=== PATIENT | male | born 1940 | race Caucasian/White ===

== ENCOUNTER 2019-06-15 15:19 | Outpatient (CLI) | payer MEDICARE, SELFPAY ==
--- NOTE | ~2019-06-15 | XR_ITS ---
EXAMINATION: XR elbow LT min 3V DATE: 06/15/2019 15:41 INDICATION: Olecranon bursitis with left elbow swelling TECHNIQUE: Anteroposterior, two oblique and lateral views of the left elbow were obtained. COMPARISON: None. FINDINGS: Alignment is normal. No fracture or joint effusion. 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 Small ossicle along the lateral epicond yle could represent a degenerative loose body or more likely heterotopic ossification related to old injury. Prominent relatively dense soft tissue swelling overlying the olecranon consistent with given history of olecranon bursitis. No evident internal calcified matrix or underlying erosion or periost eal reaction. IMPRESSION: 1. Prominent soft tissue swelling posterior to the elbow consistent with given history of olecranon b ursitis. 2. 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 Reviewed, dictated and finalized at location A. HOUSE CHECKER IMPRESSION: 1. Prominent soft tissue swelling posterior to the elbow consistent with given history of olecranon bursitis. 2. 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
== END 2019-06-15 15:20 | disposition home or self-care (01) ==
LOC: CHSIMG 15:22
PROVIDERS: PCP Family Medicine; Visit Provider Family Medicine
DX: M70.22 Olecranon bursitis, left elbow (principal)
CPT/HCPCS: 73080

== ENCOUNTER 2019-11-05 09:14 | Outpatient (CLI) | payer MEDICARE, SELFPAY ==
--- NOTE | ~2019-11-05 | CT_ITS ---
EXAMINATION: CT abdomen pelvis wo/w con EXAM DATE: 11/05/2019 10:00 INDICATION: Kidney cancer follow-up. TECHNIQUE: Spiral CT of the abdomen without contrast followed by both abdomen and pelvis with 100 cc intravenous Omnipaque 350. Axial, coronal and sagittal images were reviewed. The dose-length produc t (DLP) for this examination was 609.12 mGy-cm. The exposure was tailored according to patient size (auto mA exposure control), and iterative reconstruction (ASIR) was used as additional dose reduction technique. Comparison is made to prior examination from 10/02/2018. FINDINGS: The liver, spleen, adrenal glands and pancreas are unremarkable. Gallbladder is unremarkab le. No biliary obstruction. Surgical changes at the lower pole of the left kidney, partial nephrect victor m with stable appearance compared to prior study. There is severe prostatomegaly. The bladder is u nremarkable. There is no retroperitoneal or pelvic lymphadenopathy. There is mild to moderate scat tered arteriosclerotic disease. Small bilateral inguinal fat-containing hernias. The appendix is normal. The stomach and small bowel are unremarkable. There is moderate colonic dive rticulosis. There is no adjacent inflammatory change to suggest diverticulitis. There is expected am ount of colonic stool. No free intraperitoneal gas. The heart is normal in size. There are no pe ricardial or pleural effusions. The lung bases are unremarkable. There are no osteoblastic or osteo lytic lesions identified. IMPRESSION: 1. Stable left renal surgical changes. No evidence of metastatic disease. 2. Severe prostatomegaly. 3. Small inguinal hernias. 4. Colonic diverticulosis. Reviewed, dictated and finalized at location B.
[2019-11-05 09:52] LABS: Estimated Glomerular Filt Rate > 60
== END 2019-11-05 09:15 | disposition home or self-care (01) ==
PROVIDERS: PCP Family Medicine; Visit Provider Urology
DX: C64.2 Malignant neoplasm of left kidney, except renal pelvis (principal); N40.0 Benign prostatic hyperplasia without lower urinary tract symptoms; K40.90 Unilateral inguinal hernia, without obstruction or gangrene, not specified as recurrent; K57.30 Diverticulosis of large intestine without perforation or abscess without bleeding
CPT/HCPCS: 36415; 74178; Q9967

== ENCOUNTER 2020-06-06 16:13 | Outpatient (CLI) | payer MEDICARE, SELFPAY ==
[2020-06-06 17:06] LABS: SARS-CoV-2 Ag Positive (Negative)
[2020-06-08 14:05] LABS: SARS-CoV-2 RNA PCR Positive
== END 2020-06-06 16:14 | disposition home or self-care (01) ==
LOC: CHSLAB 16:15
PROVIDERS: PCP Family Medicine; Visit Provider Family Medicine
DX: U07.1 COVID-19 (principal)
CPT/HCPCS: 87426; C9803; U0003; U0005

== ENCOUNTER 2020-06-13 10:57 | Outpatient (RCR) | payer MEDICARE, SELFPAY ==
[2020-06-13] MEDS: diphenhydrAMINE HCl CAP 25 MG CAPSULE PO (13:21)
[2020-06-13] MEDS: ACETAMINOPHEN 325 MG TABLET 650 MG PO (13:21)
[2020-06-13] MEDS: FAMOTIDINE 20 MG TABLET PO (13:21)
[2020-06-13 13:25] VITALS: BP 110/76; PULSE 76; RESP 16; TEMP 37.3; O2SAT 97
--- NOTE | 2020-06-14 11:35 | PC.NURSE ---
Patient had no side effects from infusion and patient feeling slightly better.
== END 2020-06-22 15:33 ==
LOC: AMCINF 10:57
PROVIDERS: PCP Family Medicine; Visit Provider Family Medicine
DX: Z23 Encounter for immunization (principal); U07.1 COVID-19
CPT/HCPCS: A9270; J7050; M0239; Q0239

== ENCOUNTER 2020-06-16 13:41 | Observation (INO) | payer MEDICARE, SELFPAY ==
[2020-06-16] VITALS (10 sets, daily range): BP systolic 102–129; BP diastolic 63–90; PULSE 82–110; RESP 20–31; TEMP 36.6–37.8; O2SAT 92–99
--- NOTE | ~2020-06-16 | XR_ITS ---
EXAMINATION: XR chest 1V portable EXAM DATE: 06/16/2020 14:28 INDICATION: dyspnea, SOB, 06/06 COVID+. TECHNIQUE: Portable AP frontal chest x-ray was obtained. Comparison is made to prior examination from 10/02/2018. FINDINGS: Moderate bilateral airspace disease, peripheral regions more affected consistent with COVID pneumonia. No pneumothorax or pleural effusion. Probable small to moderate gastroesophageal hiatal h ernia. The cardiomediastinal silhouette is prominent but magnified on this AP technique. There are no osseous abnormalities identified. IMPRESSION: 1. Moderate bilateral airspace disease consistent with COVID pneumonia. Reviewed, dictated and finalized at location B. RADIATOR MECHANIC
--- NOTE | ~2020-06-16 | CT_ITS ---
EXAMINATION: CTA chest PE protocol EXAM DATE: 06/16/2020 15:25 INDICATION: Dyspnea. COVID pneumonia. TECHNIQUE: Spiral CTA of the chest (pulmonary arteries) was performed with 100 cc Omnipaque 350 intr avenous contrast injection. Images were acquired during the pulmonary arterial phase. Coronal maxi mum intensity projection 3D-reconstructions were created by the technologist on dedicated workstation . Axial, coronal and sagittal reformatted images were reviewed. The dose-length product (DLP) for t his examination was 411.64 mGy-cm. The exposure was tailored according to patient size (auto mA exp osure control), and iterative reconstruction (ASIR) was used as additional dose reduction technique. Correlation is made to chest x-rays earlier same date, 10/02/2018. FINDINGS: Pulmonary arteries are well opacified and without intraluminal filling defects. There is m oderate sliding gastroesophageal hiatal hernia. No thoracic aortic dissection. There is bilateral m oderate amount of peripheral groundglass airspace disease, likely early stage of COVID pneumonia give n that this was not evident on an x-ray from 2019. No regions of confluence at this point in time. Th ere is moderate emphysema. Mild to moderate hyperinflation. There are no pleural or pericardial effus ions. Tracheobronchial tree is patent. Mildly enlarged precarinal lymph node likely reactive. Th ere is no pneumothorax. Heart normal in size. There is mild coronary arterial calcification, sakshi rial sclerosis. Upper abdomen is unremarkable. There is thoracic spondylosis without osteoblastic or osteolytic lesions identified. Mild thyromegaly. IMPRESSION: 1. Moderate amount of bilateral peripheral groundglass opacity consistent with early stage COVID pne umonia. 2. Moderate emphysema. 3. Moderate hiatal hernia. 4. No pulmonary emboli. Reviewed, dictated and finalized at location B. T DIRECTOR IMPRESSION: 1. Moderate amount of bilateral peripheral groundglass opacity consistent with early stage COVID pneumonia. 2. Moderate emphysema. 3. Moderate hiatal hernia. 4. No pulmonary emboli.
--- NOTE | 2020-06-16 13:53 | ED.SOB ---
HPI - SOB/Dyspnea General Chief Complaint: Shortness of Breath/Dyspnea Stated Complaint: cough headache no appetite sob Time Seen by Provider: 06/16/20 13:58 Source: patient Mode of arrival: ambulatory Limitations: no limitations History of Present Illness HPI Narrative: 79-year-old man who was diagnosed with COVID on June 06 comes in today complaining of increasing shortness of breath, poor appetite and cough and headache. Patient states that shortness breath is developed over the last few days. He denies fever, vomiting, diarrhea, chest pain, abdominal pain and dysuria. Is a former smoker but denies history of lung disease. MD elicited complaint: shortness of breath and cough Onset (ago): day(s) (2-3) Context: recent illness Timing: constant Severity: moderate Exacerbating factors: exertion Relieving factors: rest Associated symptoms: cough Treatment prior to arrival: none Related Data Home oxygen amount: none Home Medications Medication Instructions Recorded Confirmed finasteride 5 mg PO DAILY 06/16/20 06/16/20 levothyroxine [Synthroid] 100 mcg PO DAILY 06/16/20 06/16/20 Allergies Allergy/AdvReac Type Severity Reaction Status Date / Time propoxyphene Allergy Unknown Unknown Verified 06/16/20 14:23 Review of Systems Constitutional: Constitutional: Denies chills and Denies fever(s) Eyes: Eyes: Denies change in vision and Denies photophobia ENT: Denies dysphagia, Denies nasal congestion and Denies sore throat Cardiovascular: Cardiovascular: Denies chest pain and Denies radiating jaw, neck or arm pain Respiratory: Respiratory: Reports cough, Reports dyspnea and Denies wheezing Gastrointestinal: Gastrointestinal: Denies abdominal pain, Denies nausea and Denies vomiting Genitourinary: Genitourinary: Denies hematuria and Denies dysuria Musculoskeletal: Musculoskeletal: Denies arthralgias and Denies joint swelling Integumentary/Breasts: Skin/Breast: Denies pruritus, Denies erythema and Denies rash Neurologic: Denies vertigo, Denies dizziness and Denies syncope Hematologic/Lymphatic: Hematologic/Lymphatic: Denies easy bleeding and Denies easy bruising Allergic/Immunologic: Allergic/Immunologic: Denies lip swelling and Denies throat swelling PMFSH Past Medical History Medical History BPH (benign prostatic hyperplasia) Cochlear implant in place Hypothyroid Surgical History Surgical History Kidney mass Social History Social History Smoking status: Former smoker Tobacco type: cigarettes Smoking end date: 05/13/83 Alcohol intake: never Substance use: never Gender identity (if verbalized by the patient): Male Sexual Orientation (if Verbalized by the Patient): Straight or Heterosexual Spiritual care concerns: No Exam Const: General: alert Orientation/consciousness: patient oriented x3 Other: Moderate acute distress HENMT: Head: normal to inspection General nose exam: Normal nares present Face and sinus: normal facial exam Mouth: Yes moist mucous membranes Other: Diffuse erythema of the oropharynx without masses, swelling. Small amount of white exudate on the right. Eyes: Conjunctivae: conjunctivae normal Pupils: Equal, round and reactive pupils present EOM: EOMs intact bilaterally Neck: Neck: normal visual inspection and no lymphadenopathy Resp: Effort & Inspection: labored Auscultation: rales bilateral at the base Cardio: Rate: regular rate Rhythm: regular rhythm Heart sounds: no murmurs GI: GI Palp: Yes Soft to palpation and No Tenderness to palpation present (GI) Skin: General skin exam: normal color, no jaundice and no pallor Rashes: no rashes Neuro: General: patient oriented x3, moves all extremities, No no focal motor deficits and No CN's II-XI intact bilaterally Speech: No normal speec
--- NOTE | 2020-06-16 14:04 | ECG_ITS ---
Measurements Intervals [place] Rate: 87 P: 70 WY: 236 QRS: -29 QRSD: 81 T: 20 QT: 345 QTc: 417 Interpretive Statements SINUS RHYTHM WITH FIRST DEGREE AV BLOCK ATRIAL PREMATURE COMPLEXES DELAYED PRECORDIAL R/S TRANSITION BORDERLINE T WAVE ABNORMALITY- INFERIOR LEADS BASELINE WANDER- V4 ABNORMAL ECG Electronically Signed On 06-16-2020 15:05:21 RADIO ENGINEERING TEACHER by Camden Holliday D.O.
[2020-06-16 14:33] LABS: Basophils Absolute Auto 0.01 K/mm3 (0.00-0.10); Basophils Percent Auto 0.2 % (0.0-1.0); Eosinophils Absolute Auto 0.05 K/mm3 (0.02-0.50); Eosinophils Percent Auto 0.9 % (1.0-6.0); Hematocrit 40.2 % (37.0-46.0); Hemoglobin 13.7 g/dL (12.4-15.3); Immature Granulocyte Absolute 0.03 K/mm3 (0.00-0.00); Immature Granulocyte Percent A 0.5 % (0.0-0.0); Lymphocytes Absolute Auto 0.71 K/mm3 (1.10-4.50); Lymphocytes Percent Auto 12.9 % (18.0-42.0); Mean Corpuscular HGB Conc 34.1 g/dL (32.0-36.0); Mean Platelet Volume 9.7 fl (8.7-11.0); Monocytes Absolute Auto 0.25 K/mm3 (0.10-0.90); Monocytes Percent Auto 4.5 % (2.0-11.0); Neutrophils Absolute Auto 4.5 K/mm3 (1.7-7.2); Platelet Count Result 182 K/mm3 (150-420); Red Blood Count 4.42 M/mm3 (4.70-6.10); Red Cell Distribution Width 12.5 % (11.6-14.4); White Blood Count 5.5 K/mm3 (4.8-10.8)
[2020-06-16 14:33] LABS: Appearance Urine Clear (Clear); Bilirubin Urine Negative (Negative); Color Urine Yellow (Yellow); Glucose Urine UA Negative (Negative); Ketones Urine Negative (Negative); Leukocyte Esterase Ur Trace LEU/UL (Negative); Nitrate Urine Negative (Negative); Protein Urine 2+ (Negative); Specific Grav Ur >= 1.030 (1.010-1.020); pH Urine 6.5 (5.0-8.0)
[2020-06-16 14:45] LABS: Partial Thromboplastin Time 30.2 SEC (23.90-30.70); Prothrombin Time 10.9 Seconds (9.50-12.10)
[2020-06-16 14:48] LABS: D Dimer 2.27 mg/L (0.19-0.50)
[2020-06-16 14:49] LABS: Add Urine Microscopic? YES; Bacteria Urine 3+ /hpf; Blood Urine Trace-Intact (Negative); Squamous Epithelial Cell Urine None seen /hpf (Few); WBC Urine 16-20 /hpf (0-3)
[2020-06-16 14:50] LABS: Mucus Urine Heavy /lpf
[2020-06-16 14:55] LABS: BNP 41 pg/mL (0-100); Influenza Control Valid (Valid)
[2020-06-16 14:57] LABS: Alanine Aminotransferase 48 U/L (16-63); Albumin Level 2.6 g/dL (3.4-5.0); Alkaline Phosphatase 123 U/L (46-116); Anion Gap 11 mmol/L (8-16); Aspartate Amino Transferase 62 U/L (15-37); Bilirubin,Total 0.6 mg/dL (0.00-1.00); Blood Urea Nitrogen 13 mg/dL (7-18); Calcium 8.6 mg/dL (8.5-10.1); Carbon Dioxide 27 mmol/L (21-32); Chloride 102 mmol/L (98-108); Estimated CRCL calculation 55 ml/min; Estimated Glomerular Filt Rate > 60; Glucose 105 mg/dL (70-99); Osmolality Calculated 290 mOsm/kg (285-295); Sodium 140 mmol/L (136-145); Total Protein 7.4 g/dL (6.4-8.2); Troponin I 7.3 ng/L (0.00-60.4)
[2020-06-16 15:10] LABS: Base Excess ABG -1.2 mmol/L (0-2); Carboxyhemoglobin 0.9 % (0-1.5); HCO3 ABG 20.6 mmol/L (23-29); Methemoglobin ABG 0.3 % (0-1.5); Oxygen Content ABG 17.4 %vol (16.0-22.0); Oxygen Saturation ABG 90.8 % (95-97); Oxyhemoglobin 89.7 % (94-100); PCO2 ABG 27.1 mmHg (35-45); PO2 ABG 55.7 mmHg (75-85); Reduced Hemoglobin 9.1 % (0-1.5); Total Hemoglobin 13.8 g/dL
[2020-06-16 15:11] LABS: Device ROOM AIR; Modified Allen's Test Pass; Site Drawn RIGHT RADIAL
[2020-06-16] MEDS: ALBUTEROL SULFATE NEB 2.5 MG/3 ML INH INHALATION (15:53)
[2020-06-16 15:59] LABS: Lactic Acid Reflex 0.7 mmol/L (0.4-2.0)
--- NOTE | 2020-06-16 16:49 | PC.NURSE ---
1510 PT PLACED ON 02 2L SAO2 90
--- NOTE | 2020-06-16 16:50 | ADMGEN ---
This patient, Douglas Cid, was admitted to 2nd Floor Room 210-2. Patient/family oriented to hospital policies and general routines including ID bracelet, bed and alarms, visiting hours, pain management, procedures, bathroom and other care routines, personal items, smoking policy, room service/diet, and visiting hours. Information on how to activate the Rapid Response Team has been discussed. Patient/Family are encouraged to report perceived risks to care and to ask questions if they do not understand what they are told or what they should do. Patient being admitted for COVID Pneumonia, UTI, and Respiratory Distress. Vital signs stable at this time, 02@2l per nc cont. per order. Telemetry applied per order, White board and marker being used to communicate with patient due to patients Cochlear implant battery going . This nurse will call to bring in rocket motor mechanic for battery and Living will paperwork. Able to communicate with patient through white board effectively. Patient resting in bed, hob elevated, call light provided.
--- NOTE | 2020-06-16 18:00 | PC.NURSE ---
Patient provided with sandwich, fruit cup, cottage cheese and orange juice per request. Resting in bed with hob elevated. Call light at side.
--- NOTE | 2020-06-16 19:30 | PC.NURSE ---
Patient complaining of severe pain-headache and sore throat. Doctor notified. new order for PRN morphine received.
[2020-06-16] MEDS: ALBUTEROL SULFATE (*SP) INHALER 2 PUFF INHALATION (19:50)
[2020-06-16] MEDS: MORPHINE SULFATE (*CRX) 4 MG/ML INJ IV PUSH (19:50)
[2020-06-16] MEDS: DOXYCYCLINE HYCLATE 100 MG TABLET PO (20:05)
--- NOTE | 2020-06-16 20:10 | PC.NURSE ---
PRN morphine given. Patient temp 100.1. Doctor notified and order received for PRN tylenol. SPO2 sats at 95% on room air.
[2020-06-16] MEDS: ACETAMINOPHEN 325 MG TABLET 650 MG PO (21:00)
[2020-06-16 21:18] LABS: Glucose Point of Care 99 (65-105)
--- NOTE | 2020-06-16 21:30 | PC.NURSE ---
Patient reports relief with pain medication. temp decreased tp 99.
--- NOTE | 2020-06-16 22:30 | PC.NURSE ---
Patient indicates pain under control. No SOB at this time. SPO2 95% on room air.
--- NOTE | 2020-06-16 23:30 | PC.NURSE ---
Patient resting. Call light in reach. SPO2 at 95% on room air.
[2020-06-17] VITALS (20 sets, daily range): BP systolic 105–130; BP diastolic 55–84; PULSE 67–110; RESP 16–20; TEMP 36–37.1; O2SAT 85–98
--- NOTE | 2020-06-17 00:30 | PC.NURSE ---
Patient resting. VS WNL. telemetry shows sinus rhythm. SPO2 95% on room air.
--- NOTE | 2020-06-17 01:30 | PC.NURSE ---
Patient resting. telemetry shows sinus rhythm. SPO2 95 on room air
--- NOTE | 2020-06-17 02:30 | PC.NURSE ---
Noted when patient lays on his back SPO2 is 94 to 95 on room air. SPO2 drops when he turns to his side.
[2020-06-17] MEDS: MORPHINE SULFATE (*CRX) 4 MG/ML INJ IV PUSH ×2 (03:49→10:07)
--- NOTE | 2020-06-17 03:56 | PC.NURSE ---
Patient SPO2 dropped to 88%. Patient observed to be in deep sleep. Oxygen placed back on patient. Sats up to 95%. Patient requested strong medication for headache PRN morphine given
--- NOTE | 2020-06-17 05:31 | PC.NURSE ---
Noted patient has been getting up to use toilet independently.
[2020-06-17 05:58] LABS: Basophils Absolute Auto 0.01 K/mm3 (0.00-0.10); Basophils Percent Auto 0.2 % (0.0-1.0); Eosinophils Absolute Auto 0.06 K/mm3 (0.02-0.50); Eosinophils Percent Auto 1.1 % (1.0-6.0); Hematocrit 36.5 % (37.0-46.0); Hemoglobin 12.6 g/dL (12.4-15.3); Immature Granulocyte Absolute 0.03 K/mm3 (0.00-0.00); Immature Granulocyte Percent A 0.6 % (0.0-0.0); Lymphocytes Absolute Auto 0.72 K/mm3 (1.10-4.50); Lymphocytes Percent Auto 13.5 % (18.0-42.0); Mean Corpuscular HGB Conc 34.5 g/dL (32.0-36.0); Mean Corpuscular Hemoglobin 31.8 pg (27.0-31.0); Mean Corpuscular Volume 92.2 fL (78.0-102.0); Mean Platelet Volume 9.7 fl (8.7-11.0); Monocytes Absolute Auto 0.31 K/mm3 (0.10-0.90); Monocytes Percent Auto 5.8 % (2.0-11.0); Neutrophils Absolute Auto 4.2 K/mm3 (1.7-7.2); Neutrophils Percent Auto 78.8 % (50.0-70.0); Platelet Count Result 165 K/mm3 (150-420); Red Blood Count 3.96 M/mm3 (4.70-6.10); Red Cell Distribution Width 12.6 % (11.6-14.4); White Blood Count 5.3 K/mm3 (4.8-10.8)
[2020-06-17] MEDS: ALBUTEROL SULFATE (*SP) INHALER 2 PUFF INHALATION ×3 (06:07→13:37)
[2020-06-17 06:16] LABS: Alanine Aminotransferase 57 U/L (16-63); Albumin Level 2.2 g/dL (3.4-5.0); Alkaline Phosphatase 110 U/L (46-116); Anion Gap 10 mmol/L (8-16); Aspartate Amino Transferase 54 U/L (15-37); Bilirubin,Total 0.6 mg/dL (0.00-1.00); Blood Urea Nitrogen 11 mg/dL (7-18); Calcium 8.4 mg/dL (8.5-10.1); Carbon Dioxide 26 mmol/L (21-32); Chloride 104 mmol/L (98-108); Estimated CRCL calculation 68 ml/min; Estimated Glomerular Filt Rate > 60; Glucose 100 mg/dL (70-99); Osmolality Calculated 289 mOsm/kg (285-295); Potassium 4.2 mmol/L (3.5-5.1); Sodium 140 mmol/L (136-145); Total Protein 6.4 g/dL (6.4-8.2)
[2020-06-17 08:05] LABS: Glucose Point of Care 99 (65-105)
--- NOTE | 2020-06-17 08:51 | PM.IMHP ---
H&P: HPI History of Present Illness Date/Time: 06/17/20 08:51 Patient being admitted under observation for rapid positive test for COVID, shortness of breath cough headache and no appetite. <BHAVYA Villalpando - Last Filed: 06/18/20 07:22> Chief Complaint: Weakness, dry cough, SOB <BHAVYA Villalpando - Last Filed: 06/18/20 07:22> Narrative: Douglas Cid is a 79 year old male who is very hard of hearing stating he does not have batteries for his cochlear implants. a little difficult getting a history from this patient as a form of communication is writing down questions for patient to verbally respond to. Patient states that he was having some weakness shortness of breath some headache starting a couple days ago and since since had not improved you subsequently was tested for COVID on June 06 2020 for which she was positive. Patient now continues to show signs of the infection. <BHAVYA Villalpando - Last Filed: 06/18/20 07:22> Review of Systems Constitutional: Constitutional: Reports no additional constitutional complaints, Reports headache(s), Reports poor appetite and Reports weakness <BHAVYA Villalpando - Last Filed: 06/18/20 07:22> Cardiovascular: Cardiovascular: Reports no additional cardiovascular complaints, Denies chest pain, Denies chest pain at rest and Denies chest pain with activity <BHAVYA Villalpando - Last Filed: 06/18/20 07:22> Respiratory: Respiratory: Reports cough (Dry nonproductive), Reports dyspnea and Reports dyspnea on exertion <BHAVYA Villalpando - Last Filed: 06/18/20 07:22> Gastrointestinal: Gastrointestinal: Reports no additional gastrointestinal complaints <BHAVYA Villalpando - Last Filed: 06/18/20 07:22> Musculoskeletal: Musculoskeletal: Reports no additional musculoskeletal complaints <BHAVYA Villalpando - Last Filed: 06/18/20 07:22> [facility] Past Medical History Medical History: Medical History BPH (benign prostatic hyperplasia) Cochlear implant in place Hypothyroid <BHAVYA Villalpando - Last Filed: 06/18/20 07:22> Surgical History Surgical History: Surgical History Kidney mass <BHAVYA Villalpando - Last Filed: 06/18/20 07:22> Social History Social History: Social History Smoking status: Former smoker Tobacco type: cigarettes Smoking end date: 05/13/83 Alcohol intake: never Substance use: never Gender identity (if verbalized by the patient): Male Sexual Orientation (if Verbalized by the Patient): Straight or Heterosexual Spiritual care concerns: No <BHAVYA Villalpando - Last Filed: 06/18/20 07:22> Meds Home Medications and Allergies Home medications: Home Medications Medication Instructions Recorded Confirmed Type finasteride 5 mg PO DAILY 06/16/20 06/16/20 History levothyroxine [Synthroid] 100 mcg PO DAILY 06/16/20 06/16/20 History dexamethasone 6 mg PO DAILY@0800 #9 tablet 06/18/20 Rx dextromethorphan-guaifenesin 10 ml PO Q6H PRN #10 ml 06/18/20 Rx [Robafen DM Cough] sulfamethoxazole-trimethoprim 1 tablet PO Q12H 14 Days #28 tablet 06/18/20 Rx [Bactrim DS] <BHAVYA Villalpando - Last Filed: 06/18/20 07:22> Allergies/Adverse reactions: Allergies Allergy/AdvReac Type Severity Reaction Status Date / Time propoxyphene Allergy Unknown Unknown Verified 06/16/20 14:23 <BHAVYA Villalpando - Last Filed: 06/18/20 07:22> Vital Signs Vital Signs - 24 hr 06/16/20 14:02 06/16/20 14:32 06/16/20 14:54 Temperature 98.2 F Pulse Rate 92 82 88 Respiratory Rate 20 28 H Blood Pressure 128/90 129/88 Pulse Oximetry 93 92 06/16/20 15:54 06/16/20 16:01 06/16/20 16:15 Temperature Pulse Rate 93 93 110 H Respiratory Rate 31 H 25 H 24 H Blood Pressure 127/79 Pulse Oximet
[2020-06-17] MEDS: DOXYCYCLINE HYCLATE 100 MG TABLET PO ×2 (10:06→21:16)
[2020-06-17] MEDS: ENOXAPARIN 40 MG/0.4 ML SYRINGE SUB-Q (10:06)
[2020-06-17] MEDS: LEVOTHYROXINE SODIUM 100 MCG TABLET PO (10:06)
[2020-06-17] MEDS: FINASTERIDE 5 MG TABLET PO ×2 (10:06→16:52)
[2020-06-17] MEDS: NYSTATIN 100,000 UNITS/ML SUSP 5 ML ORAL.SUSP PO ×4 (10:07→21:16)
[2020-06-17 11:51] LABS: Glucose Point of Care 109 (65-105)
--- NOTE | 2020-06-17 13:46 | HOMEO2EVAL ---
Home Oxygen Evaluation RC: Home Oxygen (O2) Evaluation Start: 06/17/20 11:37 Freq: ONCE Status: Active Protocol: RPE Activity Type Activity Date Activity User E-Sign Co-Sign Detail Recorded Client Recorded Date Recorded By Document 06/17/20 13:03 SJB [id number] 06/17/20 13:45 SJB Document 06/17/20 13:05 SJB [id number] 06/17/20 13:45 SJB Document 06/17/20 13:07 SJB [id number] 06/17/20 13:45 SJB Document 06/17/20 13:09 SJB [id number] 06/17/20 13:45 SJB Document 06/17/20 13:11 SJB [id number] 06/17/20 13:45 SJB Document 06/17/20 13:13 SJB [id number] 06/17/20 13:45 SJB Document 06/17/20 13:15 SJB [id number] 06/17/20 13:45 SJB 06/17/20 06/17/20 06/17/20 13:03 13:05 13:07 Home O2 Evaluation Test Phase Resting Resting Exercise Oxygen Delivery Room Air Nasal Cannula Nasal Cannula Oxygen Flow Rate (L/min) 2 2 Pulse Oximetry (90-100 %) 85 L 91 88 L Pulse Rate (60-100 beats/min) 72 97 110 H Activity Tolerance Good Rating of Perceived Dyspnea (PD) +2 Mild, Some Difficulty, Noticeable to the Observer Rate of Perceived Exertion (PE) 11 Fairly light Ambulation Distance (feet) 25 Home Oxygen Evaluation Comments Will now start Will begin walk O2 will go up patient on 2 now. to 3 lpm. lpm Treatment Charges O2 Evaluation - Inpatient 06/17/20 06/17/20 06/17/20 13:09 13:11 13:13 Home O2 Evaluation Test Phase Exercise Exercise Exercise Oxygen Delivery Nasal Cannula Nasal Cannula Nasal Cannula Oxygen Flow Rate (L/min) 3 4 5 Pulse Oximetry (90-100 %) 88 L 88 L 92 Pulse Rate (60-100 beats/min) 90 110 H 100 Activity Tolerance Good Good Good Rating of Perceived Dyspnea (PD) +2 Mild, Some +2 Mild, Some +2 Mild, Some Difficulty, Difficulty, Difficulty, Noticeable to Noticeable to Noticeable to the Observer the Observer the Observer Rate of Perceived Exertion (PE) 12 12 12 Ambulation Distance (feet) 25 25 Home Oxygen Evaluation Comments Will increase Will increase PLB strongly O2 to 4 lpm. to 5 lpm. encouraged. Pt has moist bibasilar rales . Treatment Charges 06/17/20 13:15 Home O2 Evaluation Test Phase Resting Oxygen Delivery Nasal Cannula Oxygen Flow Rate (L/min) 3 Pulse Oximetry (90-100 %) 90 Pulse Rate (60-100 beats/min) 104 H Activity Tolerance Good Rating of Perceived Dyspnea (PD) +1 Mild, Noticeable to the Participant but Not to an Observer Rate of Perceived Exertion (PE) 12 Ambulation Distance (feet) Home Oxygen Evaluation Comments Pt back resting on side of bed on 3 lpm, sp02 90% Treatment Charges
[2020-06-17] MEDS: ONDANSETRON INJ 4 MG/2 ML VIAL IV PUSH (13:58)
[2020-06-17] MEDS: DEXAMETHASONE SOD PHOS INJ 4 MG/ML VIAL 6 MG IV PUSH (14:31)
[2020-06-17 16:59] LABS: Glucose Point of Care 109 (65-105)
[2020-06-18] MEDS: ALBUTEROL SULFATE (*SP) INHALER 2 PUFF INHALATION ×3 (01:53→10:30)
[2020-06-18 03:43] VITALS: BP 116/69; PULSE 67; RESP 18; TEMP 36.4; O2SAT 91
[2020-06-18 03:44] VITALS: PULSE 55
[2020-06-18 05:41] LABS: Hematocrit 37.5 % (37.0-46.0); Hemoglobin 12.7 g/dL (12.4-15.3); Mean Corpuscular HGB Conc 33.9 g/dL (32.0-36.0); Mean Corpuscular Volume 91.5 fL (78.0-102.0); Mean Platelet Volume 9.9 fl (8.7-11.0); Platelet Count Result 166 K/mm3 (150-420); Red Cell Distribution Width 12.4 % (11.6-14.4); White Blood Count 3.2 K/mm3 (4.8-10.8)
[2020-06-18 06:01] LABS: Anion Gap 8 mmol/L (8-16); Blood Urea Nitrogen 16 mg/dL (7-18); Carbon Dioxide 28 mmol/L (21-32); Chloride 103 mmol/L (98-108); Estimated CRCL calculation 66 ml/min; Estimated Glomerular Filt Rate > 60; Glucose 143 mg/dL (70-99); Osmolality Calculated 291 mOsm/kg (285-295); Potassium 4.3 mmol/L (3.5-5.1); Sodium 139 mmol/L (136-145)
[2020-06-18 07:48] VITALS: BP 124/81; PULSE 74; RESP 18; TEMP 36.4; O2SAT 90
[2020-06-18 08:00] VITALS: PULSE 113
[2020-06-18] MEDS: ENOXAPARIN 40 MG/0.4 ML SYRINGE SUB-Q (08:59)
[2020-06-18] MEDS: FINASTERIDE 5 MG TABLET PO (08:59)
[2020-06-18] MEDS: DEXAMETHASONE 2 MG TABLET 6 MG PO (08:59)
[2020-06-18] MEDS: LEVOTHYROXINE SODIUM 100 MCG TABLET PO (08:59)
[2020-06-18] MEDS: DOXYCYCLINE HYCLATE 100 MG TABLET PO (08:59)
[2020-06-18] MEDS: NYSTATIN 100,000 UNITS/ML SUSP 5 ML ORAL.SUSP PO ×2 (09:01→13:10)
--- NOTE | 2020-06-18 11:16 | PM.DS ---
DS: Admitting Diagnosis Admitting Diagnosis Admitting Diagnosis: Weakness, cough DS: Discharge Diagnosis Discharge Diagnosis (1) COVID-19: Code(s): U07.1 - COVID-19 Status: Acute Assessment and Plan: 06/17/2020 patient was positive on 06/06/2020 with what sounds like worsening or non improvement of symptoms, Rocephin and doxycycline started in the ER for potential bacterial pneumonia, will continue this on the floor, patient given Robitussin DM for his cough urine and blood culture pending as well as group a strep, 10 day course of Decadron started today, patient has increased oxygen demand currently on 2-3 L nasal cannula, walk test ordered patient SpO2 was good at about 3 L and with activity he did well at 5 L, patient may also benefit from PT OT either here in the hospital or as an outpatient on discharge 06/18/2020 patient has finished his isolation for COVID today, patient can continue Robitussin DM for his cough, patient does have home oxygen that has or will be delivered to his house and oxygen available at the hospital that was delivered by the oxygen company for him to go home with, patient does move about the room without any difficulty, will continue Decadron to finish course (2) UTI (urinary tract infection): Code(s): N39.0 - Urinary tract infection, site not specified Status: Acute Assessment and Plan: 06/18/2020 urine culture came back positive for Staphylococcus saprophyticus and will be sending script to his pharmacy (3) Hypothyroid: Code(s): E03.9 - Hypothyroidism, unspecified Status: Acute Assessment and Plan: 06/17/2020 continue levothyroxine 100 mcg daily, patient will need to follow-up with primary care provider for any recheck lab work (4) Thrush: Code(s): B37.0 - Candidal stomatitis Status: Acute Assessment and Plan: 06/17/2020 nystatin ordered, will monitor progress 06/18/2020 will continue the nystatin on discharge DS: Summary Hospital Course Hospital Course: Pt is doing well. Had increased O2 demand however he can go home on oxygen and finish his Abx and Steroids there. Time Spent with Patient Time attestation: Total time spent providing and/or coordinating discharge services: < 30 minutes Exam Const: General: cooperative, comfortable, no acute distress, alert, awake and Physically active Nutritional Appearance: overweight Resp: Effort & Inspection: normal respiratory effort Auscultation: rales (improved today) Cardio: Rate: regular rate Heart sounds: S1 normal heart sound present and S2 normal heart sound present Neuro: General: oriented to person, oriented to place and oriented to time Cranial nerves: Yes hard of hearing Extrem: General: no pedal edema DS: Data Data Completed and Pending Labs on day of discharge: Labs from last 24 hours 06/18/20 06/18/20 06/17/20 05:37 05:37 16:45 WBC 3.2 L RBC 4.10 L Hgb 12.7 Hct 37.5 MCV 91.5 MCH 31.0 MCHC 33.9 RDW 12.4 Plt Count 166 MPV 9.9 Sodium 139 Potassium 4.3 Chloride 103 Carbon Dioxide 28 Anion Gap 8 BUN 16 Creatinine 0.85 Estim Creat Clear Calc 66 Estimated GFR > 60 Glucose 143 H POC Capillary Glucose 109 Calculated Osmolality 291 Calcium 9.0 06/17/20 11:44 WBC RBC Hgb Hct MCV MCH MCHC RDW Plt Count MPV Sodium Potassium Chloride Carbon Dioxide Anion Gap BUN Creatinine Estim Creat Clear Calc Estimated GFR Glucose POC Capillary Glucose 109 Calculated Osmolality Calcium Preliminary micro results at discharge 06/16/20 14:40 Blood Culture - Preliminary Blood 06/16/20 14:42 Blood Culture - Preliminary Blood Discharge Plan Discharge Attending physician on discharge: Deng Hodges Discharging Clinician: Ron Galdamez Anticipated Discharge Date/Time: 06/18/20 12:30 Patient Disposition: Home, Self-Care Activity: as t
[2020-06-18 11:37] LABS: Glucose Point of Care 134 (65-105)
--- NOTE | 2020-06-20 11:07 | PC.NURSE ---
Spouse states they received and understood the discharge instructions. She did question if pt was to wear O2 at all times and was informed that he is to wear it at all times.
== END 2020-06-18 14:00 | disposition home or self-care (01) ==
LOC: CHSED 13:45 → CHS2ND 16:01
PROVIDERS: Nurse Practitioner Family; Admitting Provider Emergency Medicine; Emergency Provider Emergency Medicine; PCP Family Medicine; Visit Provider Emergency Medicine
DX: U07.1 COVID-19 (principal); R06.03 Acute respiratory distress; N39.0 Urinary tract infection, site not specified; B37.0 Candidal stomatitis; N40.0 Benign prostatic hyperplasia without lower urinary tract symptoms; N28.89 Other specified disorders of kidney and ureter; E03.9 Hypothyroidism, unspecified; Z87.891 Personal history of nicotine dependence; Z96.21 Cochlear implant status
CPT/HCPCS: 36415; 36600; 71045; 71275; 80048; 80053; 81001; 82375; 82805; 82948; 83050; 83605; 83880; 84484; 85025; 85027; 85380; 85610; 85730; 87040; 87077; 87081; 87086; 87804; 87880; 93005; 94618; 94640; 96365; 96366; 96372; 96375; 96376; 97161; 97165; 99285; A9270; G0378; J0696; J1100; J1650; J2270; J2405; J8540; Q9967

== ENCOUNTER 2020-06-23 13:44 | Outpatient (RCR) | payer MEDICARE, SELFPAY ==
--- NOTE | 2020-06-23 14:56 | PTOPEVAL ---
Thank you for referring Douglas Cid to [facility].? The patient is scheduled to be seen for therapy? ____x/week for ___ weeks. Please review, sign, date and return this plan of care SULEMAN. I agree with and certify that the following plan of care is medically necessary. Referring Physician Date Admitting Provider: Attending Provider: Jerson Woodson MD Referring Provider: *PT Outpatient Evaluation Start: 06/23/20 13:56 Freq: Status: Active Protocol: Document 06/23/20 13:59 [facility] (Rec: 06/23/20 14:55 [facility] [id number]) Therapy Assessment Status Assessment Status Assessment Status Evaluation Outpatient Past Medical History Neurological History Hx Neurological Disorders No Significant History Cardiovascular History Hx Cardiac Disorders No Significant History Respiratory History Hx Emphysema Yes Hx Pneumonia Yes: COVID Gastrointestinal History Hx Gastrointestinal Disorders No Significant History Genitourinary History Hx Benign Prostatic Hyperplasia Yes Hx Other Genitourinary Disorders Yes: Mass removed from Kidney Musculoskeletal History Hx Musculoskeletal Disorders No Significant History Hematological History Hx Hematological Disorders No Significant History Endocrine History Hx Hypothyroidism Yes HEENT History Hx Ear Surgery Yes Hx Other HEENT Disorders Yes: Cochlear Implant. Integumentary History Hx Skin Disorders No Significant History Reproductive History Hx Reproductive Disorders No Significant History Psychosocial History Hx Psychiatric Disorders No Significant History Pain History History of Any Previous or Ongoing No Significant History Instance of Pain Anesthesia History Hx Anesthesia Reactions No Significant History Evaluation Information Problem Diagnosis generalized weakness, deconditioning, post covid related Onset 06/23/20 Subjective Information patient reports he was Query Text:As Reported By Patient/ recently in the hospital with Family COVID. he reports he is back at home now with oxygen. he reports his oxygen levels have been better above 85-90%. he reports he is down to using oxygen at night. 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 he reports he is able to complete home activities, but since being home from the [facility]
== END 2020-07-27 14:47 | disposition home or self-care (01) ==
LOC: CHSPT 13:44
PROVIDERS: PCP Family Medicine; Visit Provider Family Medicine
DX: Z86.16 Personal history of COVID-19 (principal); R53.81 Other malaise
CPT/HCPCS: 97110; 97161; 97530

== ENCOUNTER 2020-07-20 13:01 | Outpatient (CLI) | payer MEDICARE, SELFPAY ==
--- NOTE | ~2020-07-20 | XR_ITS ---
EXAMINATION: XR chest 2V DATE: 07/20/2020 13:19 INDICATION: Cough TECHNIQUE: PA and lateral views of the chest are obtained. COMPARISON: 06/16/2020 FINDINGS: Patchy opacities of the mid and lower lung zones persist but have improved. There is no ple ural effusion or pneumothorax. The cardiomediastinal silhouette is normal. There is mild thoracic spo ndylosis. IMPRESSION: 1. Persistent but improved airspace opacities of the mid and lower lung zones, consistent with resolv ing COVID 19 pneumonia. Reviewed, dictated and finalized at location A. ER FIXER IMPRESSION: 1. Persistent but improved airspace opacities of the mid and lower lung zones, consistent with resolving COVID 19 pneumonia.
== END 2020-07-20 13:02 | disposition home or self-care (01) ==
LOC: CHSIMG 13:03
PROVIDERS: PCP Family Medicine; Visit Provider Family Medicine
DX: R05 Cough (principal)
CPT/HCPCS: 71046; 97110; 97530

== ENCOUNTER 2020-07-25 10:28 | Outpatient (CLI) | payer MEDICARE, SELFPAY ==
--- NOTE | 2020-07-26 15:33 | WPDHOLTEREM ---
Holter/Event Monitor Holter/Event Monitor Date of procedure: 07/25/20 Procedure Type: 24 hour holter monitor Indications: Tachycardia Conclusion: 1. 24 hour holter monitor on 07/25/20. 2. Underlying rhythm is sinus rhythm. HR range 61-129 bpm; average HR 90 bpm. 3. There are 7,271 premature supraventricular complexes, 382 supraventricular couplets, 12 supraventricular triplets, 89 supraventricular bigeminy and 2,240 supraventricular trigeminy. No supraventricular tachycardia. 4. There are 120 premature ventricular complexes and 1 ventricular couplet. No ventricular tachycardia. 5. No sinoatrial or atrioventricular blocks. No significant pauses greater than 2 seconds. 6. Patient reports symptoms of shortness of breath which demonstrate sinus rhythm at 93 bpm and supraventricular trigeminy.
== END 2020-07-25 10:29 | disposition home or self-care (01) ==
PROVIDERS: PCP Family Medicine; Visit Provider Family Medicine
DX: R00.0 Tachycardia, unspecified (principal)
CPT/HCPCS: 93225; 93226

== ENCOUNTER 2021-01-09 11:42 | Emergency (ER) | payer MEDICARE, SELFPAY ==
--- NOTE | ~2021-01-09 | CT_ITS ---
EXAMINATION: CT abdomen w con INDICATION: Right upper quadrant abdominal pain TECHNIQUE: Computed tomographic images of the abdomen were obtained after the administration of 100 c c of Omnipaque 350 intravenous contrast. The dose-length product (DLP) was 318.70 mGy-cm. Automated e xposure control and iterative reconstruction technique were employed. COMPARISON: 11/05/2019 FINDINGS: Minimal dependent atelectasis is present in the lung bases. The heart size is normal. There is a moderate-sized sliding hiatal hernia. Cysts of the liver measure up to 7 mm in the right hepati c lobe. The spleen, pancreas, and adrenal glands are normal. There appears to be mild fat stranding s urrounding the gallbladder. The right kidney is unremarkable. There is scarring in the anterolateral aspect of the left kidney lower pole. There is no free intraperitoneal gas or evidence of bowel obstr uction. There are no pathologically enlarged abdominal lymph nodes. There is calcified atherosclerosi s of the aorta and many of the other arteries. There is mild lumbar spondylosis. IMPRESSION: 1. Possible mild fat stranding near the gallbladder. Consider evaluation with right upper quadrant ul trasound and/or nuclear hepatobiliary scan if there is concern for cholecystitis. Reviewed, dictated and finalized at location A. IMPRESSION: 1. Possible mild fat stranding near the gallbladder. [facility] and/or nuclear hepatobiliary scan if there is co ncern for cholecystitis.
--- NOTE | ~2021-01-09 | US_ITS ---
EXAMINATION: US abdomen limited DATE: 01/09/2021 14:39 INDICATION: Abdominal pain abnormal CT . TECHNIQUE: Multiple grayscale and Doppler ultrasound images of the abdomen were obtained. COMPARISON: CT dated 01/09/2021 FINDINGS: The pancreatic head and body are normal in appearance. The pancreatic tail is not visualized. Liver has normal echogenicity and contour, with a smooth surface. No liver lesion identified. No intrahepat ic biliary duct dilation suspected. Portal venous flow was seen in the hepatopetal, normal direction and has normal Doppler waveform. There are a few small mobile echogenic and shadowing gallstones with in the gallbladder which is dilated to 4.0 cm in maximal diameter. No evident gallbladder wall thicke tere. Sonographic Burns sign was reported as negative by the receiving associate store. Common bile duct measures 4 mm in diameter which is normal. IMPRESSION: 1. Cholelithiasis but without sonographic Burns's sign or evident wall thickening to suggest acute c holecystitis. If there is continued clinical concern could consider HIDA scan for further evaluation. Reviewed, dictated and finalized at location A. IMPRESSION: 1. Cholelithiasis but without sonographic Burns's sign or evident wall thicken ing to suggest acute cholecystitis. If there is continued clinical concern coul d consider HIDA scan for further evaluation.
[2021-01-09 12:25] VITALS: BP 141/86; PULSE 70; RESP 16; O2SAT 96
[2021-01-09 13:02] LABS: Lactic Acid Reflex 1.5 mmol/L (0.4-2.0)
[2021-01-09 13:08] LABS: Alanine Aminotransferase 36 U/L (16-63); Albumin Level 3.8 g/dL (3.4-5.0); Alkaline Phosphatase 96 U/L (46-116); Anion Gap 9 mmol/L (8-16); Aspartate Amino Transferase 32 U/L (15-37); Bilirubin,Total 0.5 mg/dL (0.00-1.00); Blood Urea Nitrogen 14 mg/dL (7-18); Carbon Dioxide 27 mmol/L (21-32); Chloride 106 mmol/L (98-108); Estimated Glomerular Filt Rate > 60; Glucose 108 mg/dL (70-99); Osmolality Calculated 295 mOsm/kg (285-295); Potassium 4.1 mmol/L (3.5-5.1); Sodium 142 mmol/L (136-145); Total Protein 7.4 g/dL (6.4-8.2); Troponin I 5.1 ng/L (0.00-60.4)
--- NOTE | 2021-01-09 14:52 | ED.ABDPAIN ---
HPI - Abdominal Pain General Chief Complaint: Chest Pain Stated Complaint: pain underneath rt side rib cage Source: patient and family History of Present Illness HPI narrative: 80-year-old gentleman that presents with abdominal pain localizing to his right upper quadrant and epigastric area currently a 1/10 but was worse prior to coming the emergency department, with no chest pain no shortness of breath no fever chills no nausea vomiting no diarrhea constipation. MD elicited complaint: abdominal pain Pertinent past history: none Onset (ago): day(s) Pain Consistency: intermittent Location: epigastric and RUQ Severity: mild Pain scale (0-10): 1 Quality: aching Radiation: RUQ Migration to: RUQ and epigastric Related Data Home Medications Medication Instructions Recorded Confirmed finasteride 5 mg PO DAILY 06/16/20 06/16/20 levothyroxine [Synthroid] 100 mcg PO DAILY 06/16/20 06/16/20 Allergies Allergy/AdvReac Type Severity Reaction Status Date / Time propoxyphene Allergy Unknown Unknown Verified 06/16/20 14:23 Review of Systems Review of Systems: All systems reviewed & are unremarkable except as noted in HPI and below PMFSH Past Medical History Medical History BPH (benign prostatic hyperplasia) Cochlear implant in place Hypothyroid Surgical History Surgical History Kidney mass Social History Social History Smoking status: Former smoker Tobacco type: cigarettes Smoking end date: 05/13/83 Alcohol intake: never Substance use: never Gender identity (if verbalized by the patient): Male Sexual Orientation (if Verbalized by the Patient): Straight or Heterosexual Spiritual care concerns: No Exam Const: General: no acute distress and alert Orientation/consciousness: patient oriented x3 HENMT: Head: normal to inspection Eyes: Conjunctivae: conjunctivae normal Pupils: Equal, round and reactive pupils present EOM: EOMs intact bilaterally Direct Ophthalmoscopy: no photophobia Neck: Neck: normal visual inspection, no lymphadenopathy and no meningeal signs Chest: Chest palpation & inspection: normal inspection of the chest Resp: Effort & Inspection: normal respiratory effort Auscultation: clear to auscultation bilaterally Cardio: Rhythm: regular rhythm GI: GI Palp: Yes Soft to palpation and Yes Tenderness to palpation present (GI) ( Right upper quadrant epigastric) Percussion: Yes normal to percussion : Testes: Testes normal Back/Spine/Pelvis: Back: no CVA tenderness Skin: General skin exam: normal color Rashes: no rashes Neuro: General: patient oriented x3, moves all extremities, no meningeal signs and no focal motor deficits Psych: Mental Status: mental status grossly normal Affect: normal affect Course Course Emergency Course: TTP scan and labs were reviewed with patient and, ultrasound was performed. Vital Signs Vital signs: Vital Signs Pulse Rate 70 01/09/21 12:25 Respiratory Rate 16 01/09/21 12:25 Blood Pressure 141/86 H 01/09/21 12:25 Pulse Oximetry 96 01/09/21 12:25 Pulse Rate 70 01/09/21 12:25 Respiratory Rate 16 01/09/21 12:25 Blood Pressure 141/86 H 01/09/21 12:25 Pulse Oximetry 96 01/09/21 12:25 MDM - Abdominal Pain Lab Data Result diagrams: 01/09/21 12:39 Labs: Lab Results 01/09/21 01/09/21 Range/Units 12:39 12:39 Sodium 142 (136-145) mmol/L Potassium 4.1 (3.5-5.1) mmol/L Chloride 106 (98-108) mmol/L Carbon Dioxide 27 (21-32) mmol/L Anion Gap 9 (8-16) mmol/L BUN 14 (7-18) mg/dL Creatinine 1.12 (0.70-1.30) mg/dL Estim Creat Clear Calc Not Reportable Estimated GFR > 60 (59 - ) Glucose 108 H (70-99) mg/dL Calculated Osmolality 295 (285-295) mOsm/kg Lactic Acid 1.5 (0.4-2.0) mmol/L Calc
[2021-01-09 15:17] VITALS: PULSE 70; O2SAT 98
== END 2021-01-09 15:19 | disposition home or self-care (01) ==
PROVIDERS: Emergency Provider Emergency Medicine; PCP Family Medicine
DX: K80.20 Calculus of gallbladder without cholecystitis without obstruction (principal)
CPT/HCPCS: 36415; 74160; 76705; 80053; 83605; 84484; 99282; 99284; Q9967

== ENCOUNTER 2021-02-08 07:54 | Outpatient (CLI) | payer MEDICARE, SELFPAY ==
--- NOTE | ~2021-02-08 | NM_ITS ---
EXAMINATION: NM hepatobiliary wo pharm DATE: 02/08/2021 09:40 INDICATION: Right upper quadrant abdominal pain COMPARISON: None. TECHNIQUE: 5.1 mCi Tc-99m mebrofenin (Choletec) was administered intravenously. Scintigraphic images of the abdomen were obtained for one hour. At the 1 hour time point, the patient drank 8 oz Ensure, and imaging was continued for 60 minutes. Gallbladder ejection fraction was calculated by the technol ogist. FINDINGS: There is normal clearance of radiotracer from the blood pool. There is homogeneous tracer u ptake by the liver. Activity progresses to the bowel and gallbladder. The gallbladder ejection fract ion (GBEF) is 58%. Note that with this technique, normal GBEF >= 33%. IMPRESSION: 1. Normal hepatobiliary scan Reviewed, dictated and finalized at location A.
== END 2021-02-08 07:55 | disposition home or self-care (01) ==
LOC: CHSIMG 07:56
PROVIDERS: PCP Family Medicine; Visit Provider Family Medicine
DX: R10.11 Right upper quadrant pain (principal)
CPT/HCPCS: 78226; A9537

== ENCOUNTER 2021-03-08 13:11 | Outpatient (CLI) | payer MEDICARE, SELFPAY ==
[2021-03-08 14:14] LABS: Alanine Aminotransferase 17 U/L (4-50); Albumin Level 4.5 g/dL (3.5-5.1); Alkaline Phosphatase 112 U/L (38-126); Amylase 94 U/L (30-110); Aspartate Amino Transferase 22 U/L (17-59); Bilirubin,Total 0.3 mg/dL (0.2-1.3); Lipase 151 U/L (23-300)
== END 2021-03-08 13:12 | disposition home or self-care (01) ==
LOC: ANHSURGERY 13:15
PROVIDERS: PCP Family Medicine; Visit Provider Surgery
DX: K80.10 Calculus of gallbladder with chronic cholecystitis without obstruction (principal); Z01.818 Encounter for other preprocedural examination
CPT/HCPCS: 36415; 80076; 82150; 83690; 86850; 86900; 86901

== ENCOUNTER 2021-03-10 01:47 | Day surgery (SDC) | payer MEDICARE, SELFPAY ==
[2021-03-06 14:28] VITALS: BMI 26.6
--- NOTE | 2021-03-09 14:12 | P.PNAN_ITS ---
Anes - Initial Pre Proc Eval Procedure: Operation Date: 03/10/21 10:30 Proposed Procedures p Laparoscopic Cholecystectomy - Joshua Qiu MD Date/Time: 03/09/21 14:12 Surgeon: Joshua Qiu MD Pre Op Diagnosis: Chronic Cholecystitis With Stones Patient Data Age: 80 Gender: M Height: 1.68 m Weight: 74.84 kg Allergies Allergy/AdvReac Type Severity Reaction Status Date / Time propoxyphene Allergy Unknown Bradycardia Verified 03/10/21 08:53 Home Medications Medication Instructions Recorded Confirmed Type finasteride 5 mg PO DAILY 06/16/20 03/06/21 History levothyroxine [Synthroid] 100 mcg PO DAILY 06/16/20 03/06/21 History mecobalamin (vitamin B12) 1,000 1,000 mcg PO DAILY 02/13/21 03/06/21 History mcg chewable tablet tamsulosin 0.4 mg capsule 0.4 mg PO DAILY #30 cap 02/13/21 03/06/21 Rx Patient hx anesthesia problems: none Family hx anesthesia problems: none Results Review: All pre-operative results and documents have been reviewed as part of the pre-operative evaluation. [facility] Past Medical History Medical History BPH (benign prostatic hyperplasia) Cochlear implant in place Hypothyroid Surgical History Surgical History Kidney mass Social History Social History Smoking packs per day: 2 Smoking cigarettes per day: 40.0 Years smoked: 25 Smoking pack-years: 50.00 Smoking status: Former smoker Tobacco type: cigarettes Smoking end date: 05/13/84 Alcohol intake: current Drinks per week: 4 Substance use: never Substance use type: does not use Living arrangements: with family Gender identity (if verbalized by the patient): Male Sexual Orientation (if Verbalized by the Patient): Straight or Heterosexual Spiritual care concerns: No Anes - Eval Final PreProcedure Day of Procedure 03/09/21 14:12 Patient weight: overweight Heart: regular rate and rhythm Lungs: clear to auscultation and normal air movement Airway: Mallampati scale class II Neurological: alert and oriented Last oral intake: >/= 8 hours ASA classification: III Emergent: no Anesthetic plan: proceed Anesthesia type and monitoring: general ETT and standard monitoring Results Review: All pre-operative results and documents have been reviewed as part of the pre-operative evaluation. Informed Consent: The patient's anesthetic plan and its attendant risks and benefits were discussed with the patient/family/POA. Questions were solicited and answers provided to the satisfaction of the patient/family/POA.
[2021-03-10] VITALS (8 sets, daily range): BP systolic 105–127; BP diastolic 67–93; PULSE 60–90; RESP 14–20; TEMP 36.3–36.9; O2SAT 97–100; BMI 27.1
--- NOTE | 2021-03-10 08:23 | WPDHPUPDATE1 ---
History and Physical Update Update Date/Time: 03/10/21 08:23 History and Physical has been reviewed, including an updated exam of the patient. There are NO changes in the patient's condition. Risks, benefits, and alternatives have been discussed and questions answered. Patient agrees to proceed with procedure.
[2021-03-10] MEDS: LACTATED RINGERS 1,000 ML 30 ML IV CONT ×2 (09:00→12:21)
[2021-03-10] MEDS: ACETAMINOPHEN 500 MG TABLET 1000 MG PO (09:10)
[2021-03-10] MEDS: KETOROLAC 15 MG/ML VIAL (*BKC) IV PUSH (09:10)
[2021-03-10] MEDS: ceFAZolin 2 GM/D5W 50 ML 2 GM/50 ML BAG IVPB (11:06)
[2021-03-10] MEDS: LIDO 1%/EPINEPHRINE 1:100,000 50 ML VIAL INFILTRATE (11:41)
--- NOTE | 2021-03-10 12:24 | P.OP_ITS ---
Procedure Note - Detailed Date of Procedure 03/10/21 Pre-op Diagnosis Chronic Cholecystitis With Stones Post-op Diagnosis same Procedure Performed Laparoscopic cholecystectomy Surgeon Joshua Qiu MD Cardiothoracic Physiotherapist Jean ALVARADO Anesthesia general and local (1% lidocaine with epinephrine) Indications Patient is an 80-year-old man who presented to the emergency room with epigastric abdominal pain that radiated to his back. This came after drinking some coffee that had a lot of cream and sugar. Imaging showed gallstones. He is taken to surgery now for laparoscopic cholecystectomy for chronic cholecystitis. Findings Mild chronic inflammation, gallstones, no liver abnormalities, no biliary ductal dilatation. Description of Procedure Patient was taken to surgery and induced into general anesthesia. The abdomen is prepped and draped. Trocars were placed in the usual fashion using 1% lidocaine with epinephrine and applied Medical optical trocars. A 5 mm camera was used. The gallbladder was decompressed with a laparoscopic aspirator. The cholecystotomy was closed with a Vicryl endoloop. The gallbladder was then retracted anterosuperiorly. He has ends to the gallbladder were taken down as it was retracted. We exposed the infundibulum and triangle of Calot. Dissection was carried out and the cystic duct and cystic artery were dissected out very clearly. The gallbladder was dissected off the liver at its lower 3rd. Critical view was achieved. We then securely clipped and divided the cystic duct and cystic artery. We continued our dissection and free the gallbladder from its remaining attachments to the liver. Cautery was used for hemostasis. The gallbladder was placed in an Endo-Catch bag and retrieved through the 10 11 epigastric trocar site. We then replaced the epigastric trocar reviewed the right upper quadrant. Some additional cautery was used as well as irrigation. We continued to irrigate and cauterize the gallbladder fossa. There continued to be some oozing and I applied Surgiflo to the gallbladder fossa. Following this, bleeding seemed to be well controlled. I irrigated and recheck to another time. All looked good. We evacuated CO2 and removed the trocar sleeves. Skin wounds were closed with subcuticular running 4-0 Monocryl skin suture. The wounds were dressed with Exofin surgical adhesive. Patient was awakened and taken to recovery in good condition. Sponge and needle counts were correct x2. Estimated Blood Loss -10 Drains No Packing No Pathology yes (gallbladder) Complications None Condition stable Disposition PACU
[2021-03-10] MEDS: fentaNYL CITRATE INJ (*CRX) 100 MCG/2 ML VIAL 25 MCG IV PUSH ×2 (12:47→12:52)
== END 2021-03-10 14:09 | disposition home or self-care (01) ==
PROVIDERS: PCP Family Medicine; Visit Provider Surgery
PROC: 0FT44ZZ Resection of Gallbladder, Percutaneous Endoscopic Approach (ICD-10-PCS; CPT 47562; principal; 2021-03-10 10:30)
DX: K80.10 Calculus of gallbladder with chronic cholecystitis without obstruction (principal); E03.9 Hypothyroidism, unspecified; N40.0 Benign prostatic hyperplasia without lower urinary tract symptoms; E66.3 Overweight; Z68.27 Body mass index [BMI] 27.0-27.9, adult; Z87.891 Personal history of nicotine dependence
CPT/HCPCS: 47562; 36415; 80076; 82150; 83690; 86850; 86900; 86901; 88304; A9270; C1713; J0690; J1200; J1885; J2370; J2405; J2704; J2710; J3010; J7120

== ENCOUNTER 2021-08-31 10:37 | Outpatient (CLI) | payer MEDICARE, SELFPAY ==
--- NOTE | ~2021-08-31 | XR_ITS ---
EXAMINATION: XR thoracic spine 3V EXAM DATE: 08/31/2021 10:55 INDICATION: Dorsalgia, right upper back pain x2 months. TECHNIQUE: Frontal and lateral projections of the thoracic spine as well as lateral swimmers projecti on of the upper thoracic spine for interpretation. There is no prior study for comparison. FINDINGS: There is thoracic kyphosis, with minimal anterior wedging to several consecutive midthoraci c vertebral bodies contributing to this. There are no acute fractures identified. There are moderat e-sized lower thoracic bridging endplate osteophytes. There is mild thoracic disc disease. Paraspinal soft tissue is unremarkable. Mild thoracic aortic tortuosity. Density above the gastroesophageal abhay ction probably moderate sized hiatal hernia. IMPRESSION: Mild to moderate thoracic spondylosis, kyphosis. Reviewed, dictated and finalized at location A.
== END 2021-08-31 10:38 | disposition home or self-care (01) ==
LOC: CHSIMG 10:42
PROVIDERS: PCP Family Medicine; Visit Provider Family Medicine
DX: M54.9 Dorsalgia, unspecified (principal)
CPT/HCPCS: 72072

== ENCOUNTER 2022-11-03 10:29 | Emergency (ER) | payer MEDICARE, SELFPAY ==
--- NOTE | ~2022-11-03 | XR_ITS ---
XR finger 1st LT min 2V DATE: 11/03/2022 11:05 INDICATION: Deep laceration of distal first digit from table saw TECHNIQUE: 3 views COMPARISON: None FINDINGS: There is soft tissue irregularity of the distal first digit consistent with history of lace ration. No radiopaque soft tissue foreign body or subcutaneous emphysema is noted. No fracture or dislocation, periosteal reaction or bone destruction of the left first digit is detect ed. Osteoarthritic changes are noted at the navicular capitate, triscaphe, first carpometacarpal, first m etacarpophalangeal and interphalangeal joints. There is osteopenia. IMPRESSION: Soft tissue laceration of distal first digit; no fracture or dislocation or radiopaque fo reign body Polyarticular osteoarthritic arthritis Osteopenia Reviewed, dictated and finalized at location A. IMPRESSION: Soft tissue laceration of distal first digit; no fracture or disloc ation or radiopaque foreign body Polyarticular osteoarthritic arthritis Osteopenia
[2022-11-03 10:28] VITALS: BP 147/95; PULSE 84; RESP 20; TEMP 37; O2SAT 98
--- NOTE | 2022-11-03 10:49 | ED.WOUNDLAC ---
HPI - Wound/Laceration General Chief Complaint: Wound/Laceration Stated Complaint: L thumb laceration Time Seen by Provider: 11/03/22 10:34 Source: patient Mode of arrival: ambulatory Limitations: no limitations History of Present Illness HPI narrative: this an 82-year-old gentleman that presents after he had an injury to his left distal thumb causing an avulsion injury patient is not up-to-date with his tetanus currently no pain has good range of motion no numbness or tingling in his thumb. Occurred earlier this morning after he was using a circular saw. Onset (ago): hour(s) Extremity Location: Left: hand ( left thumb avulsion injury) Place: home Patient tetanus UTD: No Context: accidental Associated symptoms: none Treatments prior to arrival: bandage Related Data Home Medications Medication Instructions Recorded Confirmed finasteride 5 mg tablet 5 mg PO DAILY 06/16/20 11/03/22 thyroid (pork) 90 mg tablet (BASKETBALL SCOUT 90 mg PO DAILY 11/03/22 11/03/22 Thyroid) Allergies Allergy/AdvReac Type Severity Reaction Status Date / Time propoxyphene Allergy Unknown Bradycardia Verified 11/03/22 10:42 Review of Systems Review of Systems: All systems reviewed & are unremarkable except as noted in HPI and below PMFSH Past Medical History Medical History BPH (benign prostatic hyperplasia) Cochlear implant in place Hypothyroid Surgical History Surgical History Hx laparoscopic cholecystectomy 03/10/21 Kidney mass Social History Social History Smoking packs per day: 2 Smoking cigarettes per day: 40.0 Years smoked: 25 Smoking pack-years: 50.00 Smoking status: Former smoker Tobacco type: cigarettes Smoking end date: 05/13/84 Alcohol intake: current Drinks per week: 4 Substance use: never Substance use type: does not use Living arrangements: with family Gender identity (if verbalized by the patient): Male Sexual Orientation (if Verbalized by the Patient): Straight or Heterosexual Spiritual care concerns: No Exam Const: General: healthy appearing and no acute distress Eyes: Conjunctivae: conjunctivae normal Neck: Neck: normal visual inspection Chest: Chest palpation & inspection: normal inspection of the chest Resp: Effort & Inspection: normal respiratory effort Auscultation: clear to auscultation bilaterally Cardio: Rate: regular rate Rhythm: regular rhythm GI: GI Palp: Yes Soft to palpation Skin: Wounds: wounds noted Course Course Emergency Course: avulsion injury to his distal left thumb currently no bleeding x-ray shows no evidence of affecting the bone, wound was explored irrigated x-ray performed, patient was updated with his tetanus apply triple antibiotic ointment wrapped in gauze and will send antibiotics to his pharmacy. Vital Signs Vital signs: Vital Signs Temperature 37.0 C 11/03/22 10:28 Pulse Rate 84 11/03/22 10:28 Respiratory Rate 20 11/03/22 10:28 Blood Pressure 147/95 H 11/03/22 10:28 Pulse Oximetry 98 11/03/22 10:28 Oxygen Delivery Room Air 11/03/22 10:28 Temperature 37.0 C 11/03/22 10:28 Pulse Rate 84 11/03/22 10:28 Respiratory Rate 20 11/03/22 10:28 Blood Pressure 147/95 H 11/03/22 10:28 Pulse Oximetry 98 11/03/22 10:28 Oxygen Delivery Room Air 11/03/22 10:28 Critical Care Time Critical Care Time Critical Care Time: No Discharge Plan Discharge Clinical Impression: Avulsion injury Patient Disposition: Home, Self-Care Condition: Stable Instructions: Antibiotic Form, Skin Avulsion (ED) Additional Instructions: advised take antibiotics as prescribed and to follow up with primary care physician if symptoms persist or worsen. Prescriptions: New amoxicillin-pot clavulanate [Augmentin] 500-125 mg tablet 1 tablet P
[2022-11-03] MEDS: TETANUS,DIPHTHERIA,AC PERTUSSIS ADULT 0.5 ML (ADACEL) IM (11:07)
[2022-11-03 11:19] VITALS: BP 142/82; PULSE 81; RESP 20; O2SAT 97
== END 2022-11-03 11:42 | disposition home or self-care (01) ==
PROVIDERS: Emergency Provider Emergency Medicine; PCP Family Medicine
DX: S61.012A Laceration without foreign body of left thumb without damage to nail, initial encounter (principal); Z23 Encounter for immunization; W27.0XXA Contact with workbench tool, initial encounter
CPT/HCPCS: 73140; 90471; 90715; 99283

== ENCOUNTER 2022-12-24 11:35 | Outpatient (CLI) | payer MEDICARE, SELFPAY ==
--- NOTE | ~2022-12-24 | XR_ITS ---
EXAMINATION: XR chest 2V DATE: 12/24/2022 11:49 INDICATION: 5 days of acute cough TECHNIQUE: frontal and lateral views of the chest were obtained. COMPARISON: Chest radiograph dated 07/20/2020 FINDINGS: Increased lucency and architectural distortion in the upper lung zones consistent with emphysema bett er appreciated on prior CT. Interval improvement in a similar pattern of coarse reticular opacities w ith peripheral and lower lung predominance in the bilateral mid and lower lung zones. No new airspace opacities, pulmonary edema, pleural effusion or pneumothorax. Heart size is normal. Small hiatal her severiano. Cholecystectomy clips in right upper quadrant. IMPRESSION: 1. Emphysema with interval improvement in bilateral peripheral and lower lung predominant coarse reti cular opacities likely representing residual now chronic scarring related to earlier COVID pneumonia. 2. Small hiatal hernia. Reviewed, dictated and finalized at location A. IMPRESSION: 1. Emphysema with interval improvement in bilateral peripheral and lower lung p redominant coarse reticular opacities likely representing residual now chronic scarring related to earlier COVID pneumonia. 2. Small hiatal hernia.
== END 2022-12-24 11:36 | disposition home or self-care (01) ==
LOC: CHSIMG 11:37
PROVIDERS: PCP Family Medicine; Visit Provider Family Medicine
DX: R05.1 Acute cough (principal); J43.9 Emphysema, unspecified; K44.9 Diaphragmatic hernia without obstruction or gangrene; R91.8 Other nonspecific abnormal finding of lung field
CPT/HCPCS: 71046

== ENCOUNTER 2023-12-31 11:57 | Emergency (ER) | payer MEDICARE, SELFPAY ==
[2023-12-31 12:02] VITALS: BP 152/85; PULSE 100; RESP 20; TEMP 36.6; O2SAT 99
--- NOTE | 2023-12-31 12:13 | ED.SKABFB ---
HPI - Skin/Abscess/Foreign Bdy General Chief complaint: Skin/Abscess/Foreign Body Stated complaint: ran into a yellow jacket nest History of Present Illness HPI narrative: patient presents for evaluation of yellow jacket stings to his right arm. Incident happened approximately 4 hours ago. Patient has put some lidocaine on the areas for pain but states he is not allergic to insect stings has no respiratory problems no trouble swallowing no drooling. Related Data Home Medications Medication Instructions Recorded Confirmed finasteride 5 mg tablet 5 mg PO DAILY 06/16/20 12/31/23 thyroid (pork) 90 mg tablet (INDIRECT [employer]ATIVE 90 mg PO DAILY 11/03/22 12/31/23 Thyroid) Allergies Allergy/AdvReac Type Severity Reaction Status Date / Time propoxyphene AdvReac Unknown Bradycardia Verified 12/31/23 12:12 Review of Systems Review of Systems: CONSTITUTIONAL: Denies fever, chills, or sweats. EYES: Denies visual changes, redness, or discharge. ENT: Denies rhinorrhea, congestion, sore throat, or otalgia. CARDIOVASCULAR: Denies chest pain, palpitations, or edema. RESPIRATORY: Denies cough or dyspnea. GASTROINTESTINAL: Denies abdominal pain, nausea, vomiting, or diarrhea. GENITOURINARY: Denies dysuria or hematuria. SKIN: Denies rash or itching. MUSCULOSKELETAL: Denies back pain, joint pain, or myalgia. NEUROLOGIC: Denies headache, numbness, or weakness. PSYCHIATRIC: Denies anxiety or depression. [facility] Past Medical History Medical History BPH (benign prostatic hyperplasia) Cochlear implant in place Hypothyroid Surgical History Surgical History Hx laparoscopic cholecystectomy 03/10/21 Kidney mass Social History Social History Smoking packs per day: 2 Smoking cigarettes per day: 40.0 Years smoked: 25 Smoking pack-years: 50.00 Smoking status: Former smoker Tobacco type: cigarettes Smoking end date: 05/13/84 Alcohol intake: current Drinks per week: 4 Substance use: never Substance use type: does not use Living arrangements: with family Gender identity (if verbalized by the patient): Male Sexual Orientation (if Verbalized by the Patient): Straight or Heterosexual Spiritual care concerns: No Comments At time of signature, agree with nursing past medical, surgical, social and family history. There is no relevant family history pertinent to the presenting complaint Exam Narrative: GENERAL: Well-appearing, well-nourished, and in no acute distress. HEAD: Normocephalic, atraumatic. EYES: PERRLA and EOMI. ENT: Nares clear, no rhinorrhea or epistaxis. Mucous membranes moist. NECK: Supple. CHEST: Clear to auscultation. No respiratory distress. HEART: Regular rate and rhythm. No murmur heard. Normal peripheral pulses. ABDOMEN: Soft, nontender, nondistended, normal active bowel sounds. EXTREMITIES: Normal range of motion. No edema. SKIN: Warm, dry, no rash. Multiple insect stings to face back and arms. NEURO: No focal deficits. Alert and oriented x3. Stambaugh Coma Scale Eye Opening: Spontaneous 4 Kamilla Coma Scale Motor: Obeys Commands 6 Kamilla Coma Scale Verbal: Oriented 5 Stambaugh Coma Scale Total 15 Course Course Level of Care: Express Care Visit Vital Signs Vital signs: Vital Signs Temperature 36.6 C 12/31/23 12:02 Pulse Rate 100 12/31/23 12:02 Respiratory Rate 20 12/31/23 12:02 Blood Pressure 152/85 H 12/31/23 12:02 Pulse Oximetry 99 12/31/23 12:02 Oxygen Delivery Room Air 12/31/23 12:02 Temperature 36.6 C 12/31/23 12:02 Pulse Rate 100 12/31/23 12:02 Respiratory Rate 20 12/31/23 12:02 Blood Pressure 152/85 H 12/31/23 12:02 Pulse Oximetry 99 12/31/23 12:02 Oxygen Delivery Room Air 12/31/23 12:02 Please SULEMAN schedule a followup visit with your personal physician for further
== END 2023-12-31 12:18 | disposition home or self-care (01) ==
PROVIDERS: Emergency Provider Nurse Practitioner Family; PCP Family Medicine
DX: T63.461A Toxic effect of venom of wasps, accidental (unintentional), initial encounter (principal); Z87.891 Personal history of nicotine dependence; N40.0 Benign prostatic hyperplasia without lower urinary tract symptoms; E03.9 Hypothyroidism, unspecified; Z96.21 Cochlear implant status
CPT/HCPCS: 99213; G0463

== ENCOUNTER 2024-05-11 09:41 | Outpatient (CLI) | payer MEDICARE, SELFPAY ==
--- NOTE | 2024-05-11 11:15 | NEURO_ITS ---
Impression: # Complains of numbness of hands. Not diabetic. ?# Right sensory more than motor Carpal Tunnel Syndrome. # Left mild Carpal Tunnel Syndrome. # No ulnar neuropathy. ? # Normal needle/EMG exam. Nerve Conduction Studies Anti Sensory Summary Table ?Stim Site NR Peak (ms) P-T Amp (?V) Site1 Site2 Delta-P (ms) Dist (cm) Tonny (m/s) Left Median Anti Sensory (2-3nd Digit) Wrist ? 3.6 19.0 Wrist 2-3nd Digit 3.6 14.0 39 Wrist ? 4.0 13.9 Wrist 2-3nd Digit 3.6 14.0 39 Right Median Anti Sensory (2-3nd Digit) Wrist ? 4.7 8.8 Wrist 2-3nd Digit 4.7 14.0 30 Wrist ? 5.5 9.7 Wrist 2-3nd Digit 4.7 14.0 30 Left Radial Anti Sensory (Base 1st Digit) Wrist ? 2.3 21.4 Wrist Base 1st Digit 2.3 0.0 Right Radial Anti Sensory (Base 1st Digit) Wrist ? 2.6 8.1 Wrist Base 1st Digit 2.6 0.0 Left Ulnar Anti Sensory (5th Digit) Wrist ? 2.4 44.4 Wrist 5th Digit 2.4 14.0 58 Right Ulnar Anti Sensory (5th Digit) Wrist ? 2.6 18.1 Wrist 5th Digit 2.6 14.0 54 Motor Summary Table ?Stim Site NR Onset (ms) O-P Amp (mV) Site1 Site2 Delta-0 (ms) Dist (cm) Tonny (m/s) Left Median Motor (Abd Poll Brev) Wrist ? 4.0 0.8 Elbow Wrist 5.5 31.0 56 Elbow ? 9.5 2.9 Right Median Motor (Abd Poll Brev) Wrist ? 3.8 4.4 Elbow Wrist 5.4 31.0 57 Elbow ? 9.2 4.6 Left Ulnar Motor (Abd Dig Minimi) Wrist ? 2.8 5.8 A Elbow Wrist 5.1 30.0 59 A Elbow ? 7.9 4.4 Right Ulnar Motor (Abd Dig Minimi) Wrist ? 2.2 4.0 A Elbow Wrist 5.9 39.0 66 A Elbow ? 8.1 2.5 F Wave Studies ?NR F-Lat (ms) L-R F-Lat (ms) Left Median (Mrkrs) (Abd Poll Brev) ? 28.60 0.00 Right Median (Mrkrs) (Abd Poll Brev) ? 28.60 0.00 Left Ulnar (Mrkrs) (Abd Dig Min) ? 29.83 0.01 Right Ulnar (Mrkrs) (Abd Dig Min) ? 29.84 0.01 EMG ?Side Muscle Nerve Root Ins Act Fibs Amp Dur Recrt Comment Right 1stDorInt Ulnar C8-T1 Nml Nml Nml Nml Nml Right Ext Indicis Radial (Post Int) C7-8 Nml Nml Nml Nml Nml Right Ext Digitorum Radial (Post Int) C7-8 Nml Nml Nml Nml Nml Right BrachioRad Radial C5-6 Nml Nml Nml Nml Nml Right PronatorTeres Median C6-7 Nml Nml Nml Nml Nml Right Abd Poll Brev Median C8-T1 Nml Nml Nml Nml Nml Right ABD Dig Min Ulnar C8-T1 Nml Nml Nml Nml Nml Left 1stDorInt Ulnar C8-T1 Nml Nml Nml Nml Nml Left Ext Indicis Radial (Post Int) C7-8 Nml Nml Nml Nml Nml Left Ext Digitorum Radial (Post Int) C7-8 Nml Nml Nml Nml Nml Left BrachioRad Radial C5-6 Nml Nml Nml Nml Nml Left PronatorTeres Median C6-7 Nml Nml Nml Nml Nml Left Abd Poll Brev Median C8-T1 Nml Nml Nml Nml Nml Left ABD Dig Min Ulnar C8-T1 Nml Nml Nml Nml Nml MTDD
== END 2024-05-11 09:42 | disposition home or self-care (01) ==
LOC: ANHNEURO 09:42
PROVIDERS: PCP Family Medicine; Visit Provider Plastic Surgery
DX: G56.03 Carpal tunnel syndrome, bilateral upper limbs (principal)
CPT/HCPCS: 95886; 95911